=== PATIENT | female | born 1980 | race Caucasian/White ===

== ENCOUNTER 2023-08-05 12:38 | Outpatient (CLI) | payer OTHER, SELFPAY ==
[2023-08-05 13:01] LABS: Basophils Absolute Auto 0.16 K/mm3 (0.00-0.10); Basophils Percent Auto 1.4 % (0.0-1.0); Eosinophils Absolute Auto 0.27 K/mm3 (0.02-0.50); Eosinophils Percent Auto 2.4 % (1.0-6.0); Hematocrit 43.8 % (35.0-49.0); Hemoglobin 14.1 g/dL (12.0-15.0); Immature Granulocyte Absolute 0.12 K/mm3 (0.00-0.00); Immature Granulocyte Percent A 1.1 % (0.0-0.0); Lymphocytes Absolute Auto 3.55 K/mm3 (1.10-4.50); Lymphocytes Percent Auto 31.6 % (18.0-42.0); Mean Corpuscular HGB Conc 32.2 g/dL (32-36); Mean Corpuscular Hemoglobin 26.7 pg (27.0-31.0); Mean Platelet Volume 9.7 fl (9.2-11.8); Monocytes Absolute Auto 0.75 K/mm3 (0.10-0.90); Monocytes Percent Auto 6.7 % (2.0-11.0); Neutrophils Absolute Auto 6.37 K/mm3 (1.70-7.20); Neutrophils Percent Auto 56.8 % (50.0-70.0); Platelet Count Result 402 K/mm3 (150-420); Red Blood Count 5.28 M/mm3 (4.20-5.40); Red Cell Distribution Width 11.9 % (11.6-14.4); White Blood Count 11.2 K/mm3 (4.8-10.8)
[2023-08-05 14:56] LABS: Creatinine Urine 46.35 mg/dL (40-278); MALB Creatinine Ratio 41.2 mg/g (0-30); Microalbumin Urine Random 19.1 mg/L
[2023-08-05 15:18] LABS: Alanine Aminotransferase 32 U/L (14-59); Albumin Level 3.9 g/dL (3.4-5.0); Alkaline Phosphatase 114 U/L (46-116); Anion Gap 6 mmol/L (4-12); Aspartate Amino Transferase 15 U/L (15-37); Bilirubin,Total 0.3 mg/dL (0.00-1.00); Blood Urea Nitrogen 9 mg/dL (7-18); Calcium 9.3 mg/dL (8.5-10.1); Carbon Dioxide 31 mmol/L (21-32); Chloride 99 mmol/L (98-108); Cholesterol 270 mg/dL (0-200); Estimated Glomerular Filt Rate > 60; Free T4 Free Thyroxine 1.12 ng/dL (0.76-1.46); Glucose 225 mg/dL (70-99); HDL Direct 48 mg/dL (40-60); LDL Cholesterol Calculated 169 mg/dL (<130); Osmolality Calculated 287 mOsm/kg (285-295); Potassium 4.2 mmol/L (3.5-5.1); Sodium 136 mmol/L (136-145); Total Protein 7.6 g/dL (6.4-8.2); Triglycerides 265 mg/dL (0-150)
[2023-08-05 15:51] LABS: Hemoglobin A1C 10.7 % (<5.7)
== END 2023-08-05 12:39 | disposition home or self-care (01) ==
LOC: CHSLAB 12:40
PROVIDERS: PCP Nurse Practitioner Family; Visit Provider Nurse Practitioner Family
DX: E11.9 Type 2 diabetes mellitus without complications (principal); Z13.6 Encounter for screening for cardiovascular disorders; E04.9 Nontoxic goiter, unspecified; I10 Essential (primary) hypertension
CPT/HCPCS: 36415; 80053; 80061; 82043; 83036; 84439; 84443; 85025